=== PATIENT | male | born 1970 | race Caucasian/White ===

== ENCOUNTER 2017-04-29 21:04 | Emergency (ER) | payer OTHER ==
[2017-04-29] MEDS ORDERED: Diazepam 5 MG TAB ONE (22:12)
[2017-04-29] MEDS ORDERED: Naproxen 500 MG TAB ONE (22:12)
[2017-04-29] MEDS ORDERED: HYDROcodone/Acetaminophen 10/325 mg Tablet ONE (22:12)
--- NOTE | 2017-04-29 22:53 | CT ---
CT OF THE CERVICAL SPINE: Date: 04-29-17 History: Joint pain. Technique: Serial axial CT imaging at 2.5 mm intervals from skull base through the lung apices witho ut contrast. Coronal and sagittal reformatted imaging obtained. FINDINGS: The C1 ring is intact. There is moderate degenerative change of the atlantoaxial interspace. There i s mild anterolisthesis of C4 on C5 measuring 2 mm. No prevertebral soft tissue swelling is seen. The re is an old fracture involving the spinus process of the T1 vertebral body. There is multilevel fac et hypertrophy, most prominent on the left at C3-4 and C4-5 and on the right at C6-7. There is uncal vertebral osteophyte formation on the left with extension into the neural foramen at C6-7. There is disc space narrowing and degenerative endplate change at C6-7 and to a lesser degree C5-6. The imaged lung apices appear unremarkable. No acute fracture or dislocation is seen. Uncal vertebral osteophyte extends into the neural foramen on the right at C6-7 as well. IMPRESSION: 1. Degenerative change as described above. No acute osseous abnormality is seen. POS: [facility]
== END 2017-04-29 23:02 | disposition home or self-care (01) ==
LOC: MADERS 21:04
DX: M62.838 Other muscle spasm (principal); E78.5 Hyperlipidemia, unspecified; I10 Essential (primary) hypertension; F17.210 Nicotine dependence, cigarettes, uncomplicated; Z87.442 Personal history of urinary calculi; Z86.73 Personal history of transient ischemic attack (TIA), and cerebral infarction without residual deficits; Z79.01 Long term (current) use of anticoagulants; Z79.899 Other long term (current) drug therapy
CPT/HCPCS: 72125